=== PATIENT | male | born 1965 | race Caucasian/White ===

== ENCOUNTER → 2018-11-23 16:58 | Outpatient (CLI) | payer SELFPAY ==
[~2018-11-23 16:58] MED LIST: NAPROSYN500 MG PO; ZESTRIL10 MG PO
[2018-11-24 11:10] LABS: IMMUNOGLOBULIN A 148 mg/dL (90-386); IMMUNOGLOBULIN G 1388 mg/dL (700-1600)
[2018-11-29 10:32] VITALS: BMI 33.3
== END | disposition home or self-care (01) ==
LOC: D.LABREF 16:58
PROVIDERS: ATTEND Internal Medicine Pulmonary Disease
DX: J44.9 Chronic obstructive pulmonary disease, unspecified (principal)

== ENCOUNTER 2018-11-29 08:36 | Outpatient (CLI) | payer SELFPAY ==
[~2018-11-29] VITALS: Ht 182.9 cm; Wt 111.4 kg
[2018-11-29 09:09] LABS: BASOPHILS 0.4 % (0-2); EOSINOPHILS 9.1 % (0-7); HEMOGLOBIN 13.7 g/dL (13.5-17.5); IMMATURE GRANULOCYTES 0.4 % (0-5); LYMPHOCYTES 18.9 % (15-50); MCHC 34.3 g/dL (31.0-37.0); MCV 90.5 fL (80.0-100.0); MEAN PLATELET VOLUME 9.3 fL (7.4-10.4); MONOCYTES 7.1 % (2-11); NEUTROPHILS 64.1 % (40-80); PLATELET COUNT 180 10x3/uL (130-400); RBC 4.42 10x6/uL (4.20-6.10); RDW 13.3 % (11.5-14.5); WBC 9.6 10x3/uL (4.8-10.8)
[2018-11-29 09:20] LABS: APTT 26.6 SECONDS (22.8-39.4); CALC OSMOLALITY 281 mosm/kg (275-300); CALCIUM 9.2 mg/dL (8.5-10.1); CARBON DIOXIDE 27.6 mmol/L (21.0-32.0); CHLORIDE - SERUM 106 mmol/L (98-107); CREATININE - SERUM 0.8 mg/dL (0.6-1.3); GLUCOSE 108 mg/dL (74-106); INR 0.99 (0.85-1.17); POTASSIUM - SERUM 4.4 mmol/L (3.5-5.1); PROTIME 12.6 SECONDS (11.6-15.0); SODIUM 141 mmol/L (136-145); UREA NITROGEN 12 mg/dL (7-18); eGFR NON AFRICAN AMERICAN > 90 mL/min (90-120)
[2018-11-29] MEDS ORDERED: NAPROSYN500 MG PO (10:29)
[2018-11-29] MEDS ORDERED: ZESTRIL10 MG PO (10:31)
[2018-11-29 10:32] VITALS: BP 132/86; Ht 182.9 cm; Wt 111.4 kg
[2018-11-29 13:19] LABS: PROTEIN - BODY FLUID 5.3 G/DL
[2018-11-30 21:06] LABS: ACID FAST SMEAR Negative (()); AFB SPECIMEN PROCESSING Concentration (())
[2018-12-01 13:10] LABS: FUNGUS STAIN Final report (())
[2018-12-06 12:09] LABS: FUNGUS MYCOLOGY CULTURE Preliminary report (())
== END 2018-11-29 15:05 | disposition home or self-care (01) ==
LOC: D.SP 08:36 → D.CT 11:00 → D.SP 11:00
PROVIDERS: Specialist; ATTEND Internal Medicine Pulmonary Disease
DX: J90 Pleural effusion, not elsewhere classified (principal)

== ENCOUNTER → 2019-06-29 11:31 | Outpatient (CLI) | payer SELFPAY ==
[2018-11-29 10:32] VITALS: BMI 33.3
== END | disposition home or self-care (01) ==
LOC: D.RAD 11:31
PROVIDERS: ATTEND Internal Medicine Pulmonary Disease
DX: R09.1 Pleurisy (principal)